=== PATIENT | male | born 1985 | race Caucasian/White ===

== ENCOUNTER 2016-12-11 19:00 | Emergency (ER) | payer OTHER ==
[2016-12-11 20:41] LABS: Basophils % (Auto) 0.8 % (0.0-1.8); Hematocrit 48.6 % (35.5-45.6); Hemoglobin 16.2 gm/dl (11.8-15.2); Mean Corpuscular HGB Conc 33 % (32-34); Mean Corpuscular Hemoglobin 30 pg (28-32); Mean Corpuscular Volume 89 fl (84-94); Platelet Count 234 K/mm3 (140-440); Red Blood Count 5.44 M/mm3 (3.65-5.03); Red Cell Distribution Width 13.7 % (13.2-15.2); White Blood Count 6.9 K/mm3 (4.5-11.0)
[2016-12-11 20:56] LABS: Urine Drugs of Abuse Note Disclamer
[2016-12-11 21:00] LABS: Anion Gap 16 mmol/L; Blood Urea Nitrogen 11 mg/dL (9-20); Calcium 9.8 mg/dL (8.4-10.2); Carbon Dioxide 27 mmol/L (22-30); Chloride 101.6 mmol/L (98-107); Glucose 114 mg/dL (75-100); Sodium 140 mmol/L (137-145)
[2016-12-11 21:34] LABS: Bilirubin,Urine NEG (Negative); Blood,Urine NEG (Negative); Ketones,Urine TR mg/dL (Negative); Leukocyte Esterase,Urine TR (Negative); Mucus,Urine 1+ /HPF; Nitrite,Urine NEG (Negative); Protein,Urine <15 mg/dL mg/dL (Negative); WBC,Urine < 1.0 /HPF (0.0-6.0)
--- NOTE | 2016-12-11 21:35 | Emergency Department Report ---
HPI - General Chief Complaint: Psych Time Seen by Provider: 12/11/16 21:08 - HPI HPI: This is a 31-year-old male who presents to the emergency department from home with the complaints of self-mutilation and suicidal thoughts while detoxing from heroin and meth. The patient has a history of going back between these drugs and sometimes using them concurrently and apparently has some severe reactions to both the drops themselves and the withdrawal/detox. In the past, the patient has cut himself, jumped off a bridge, and allegedly the use of heroin has caused the patient have a heart attack in the past. His girlfriend is bedside and says that he last used yesterday and has started talking about the suicidal thoughts now. He presents with cuts to both arms. He is up-to-date with tetanus vaccination. He has a past medical history of asthma, [place], HIV but is not on any medications. He does not have a primary care doctor or psychiatrist. He is a tobacco smoker. ED Past Medical Hx - Past Medical History Previous Medical History?: Yes Hx Hypertension: Yes Hx CVA: No Hx Heart Attack/AMI: Yes Hx Congestive Heart Failure: No Hx Diabetes: No Hx Deep Vein Thrombosis: No Hx Pulmonary Embolism: No Hx GERD: No Hx Liver Disease: No Hx Renal Disease: No Hx of Cancer: No Hx Sickle Cell Disease: No Hx Arthritis: No Hx Headaches / Migraines: No Hx Seizures: No Hx Kidney Stones: No Hx Psychiatric Treatment: Yes Hx Asthma: Yes Hx COPD: No Hx Tuberculosis: No Hx Dementia: No Hx HIV: Yes - Surgical History Past Surgical History?: No Hx Coronary Stent: No Hx Open Heart Surgery: No Hx Pacemaker: No Hx Internal Defibrillator: No Hx Cholecystectomy: No Hx Appendectomy: No Hx Breast Surgery: No - Social History Smoking Status: Current Every Day Smoker Substance Use Type: Heroin, Methamphetamines ED Review of Systems ROS: Stated complaint: MH EVAL Other details as noted in HPI Comment: All other systems reviewed and negative Constitutional: denies: chills, fever Eyes: denies: eye pain, eye discharge, vision change ENT: denies: ear pain, throat pain Respiratory: denies: cough, shortness of breath, wheezing Cardiovascular: denies: chest pain, palpitations Gastrointestinal: denies: abdominal pain, nausea, diarrhea Genitourinary: denies: urgency, dysuria Musculoskeletal: denies: back pain, joint swelling, arthralgia Skin: other (self inflicted abrasions). denies: rash, lesions Neurological: denies: headache, weakness, paresthesias Psychiatric: depression, suicidal thoughts. denies: homicidal thoughts Physical Exam - Physical Exam Vital Signs: Vital Signs 12/11/16 20:00 Temperature 98.6 F Pulse Rate 86 Respiratory 18 Rate Blood Pressure 141/94 Blood Pressure 141/94 [Right] O2 Sat by Pulse 95 Oximetry Physical Exam: GENERAL: The patient is well-developed well-nourished. HEENT: Normocephalic. Atraumatic. Extraocular motions are intact. Patient has moist mucous membranes. NECK: Supple. Trachea is midline. CHEST/LUNGS: Clear to auscultation. There is no respiratory distress noted. HEART/CARDIOVASCULAR: Regular. There is no tachycardia. There is no gallop rub or murmur. ABDOMEN: Abdomen is soft, nontender. Patient has normal bowel sounds. There is no abdominal distention. SKIN: Patient has multiple transverse noninfected nonbleeding abrasions to the dorsal forearms bilaterally. NEURO: The patient is awake, alert, and oriented. The patient is cooperative. The patient has no focal neurologic deficits. The patient has normal speech. MUSCULOSKELETAL: There is no tenderness or deformity. There is no limitation range of motion. There is no evidence of acute injury. PSYCH: Patient has a flat affect. ED Course Vital Signs 12/11/16 20:00 Temperature 98.6 F Pulse Rate 86 Respiratory 18 Rate Blood Pressure 141/94 Blood Pressure 141/94 [Right] O2 Sat by Pulse 95 Oximetry ED Medical Decision Making - Lab Data Result diagrams: 12/11/16 20:21 12/11/16 20:21 - Medical Decision Making 31-year-old male presents with detox from meth and heroin. This causes him to have depression and suicidal ideations. He already has self-inflicted abrasions and mutilation. In the past he has taken it even further and attempt to end his life and admits to more recent suicidal ideations. He denies any visual hallucinations or homicidal ideations. He denies any current auditory hallucinations but says that he had them earlier today. His vital signs of in stable throughout his ED course. None of the abrasions appear infected or requiring any suturing. The rest of his labs are unremarkable. The patient appears medically cleared for psychiatric placement. He has been made a 1013 secondary to the suicidal ideations. - Differential Diagnosis substance abuse, depression, bipolar disorder, schizophrenia Critical Care Time: No Critical care attestation.: If time is entered above; I have spent that time in minutes in the direct care of this critically ill patient, excluding procedure time. ED Disposition Clinical Impression: Suicidal ideations, Heroin withdrawal Depression Qualifiers: Depression Type: unspecified Qualified Code(s): F32.9 - Major depressive disorder, single episode, unspecified Disposition: DC/TX PSY HOSP/PSY UNIT Is pt being admited?: No Condition: Stable Referrals: PRIMARY CARE [Primary Care Provider] - 3-5 Days Time of Disposition: 21:41
--- NOTE | 2016-12-12 16:33 | Consultation ---
History of Present Illness - Reason for Consult Consult date: 12/12/16 Reason for consult: Mental Health Evaluation Requesting physician: YAMILETH ROSARIO - Chief Complaint Chief complaint: "I have no clue" - History of Present Psychiatric Illness This is a 31-year-old male who presents to the emergency department from home with the complaints of self-mutilation and suicidal thoughts while detoxing from heroin and meth. Today patient is calm and cooperative during assessment. He admits to being on a heroin binge the last couple days. He stated that he been depressed for a "while" and most recently jumped off a bridge June 2016 wanting to kill himself. Currently, patient stated, "I am suicidal now, but I don't know why. He denies having a plan at this time. He stated that he use recreational drugs often. He stated his last use of heroin was yesterday and its been a couple days since he used meth. He stated that his sister found him at a hotel and brought him to [facility]. Also, patient has superficial lacerations on both his upper extremities. He stated, "I just started cutting on myself." He stated that he cut on himself because he be depressed. He denies HI's, AVH's, poor appetite, sleep disturbance. He rate his depression a 8/10, with 10 being the worse. He denies alcohol consumption. He is positive for amphetamines and barbiturates. He is negative for opiates. Medications and Allergies Allergies Allergy/AdvReac Type Severity Reaction Status Date / Time No Known Allergies Allergy Unverified 12/11/16 20:14 Past psychiatric history - Past Medical History Past Medical History: acute CT (July 2016), HIV/AIDS, hypertension Past Surgical History: No surgical history - past Psychiatric treatment and history Psych: Depression - Social History Social history: lives with family (High school graduate) Mental Status Exam - Vital signs Last Vital Signs Temp 98.4 F 12/12/16 10:00 Pulse 84 12/12/16 10:00 Resp 18 12/12/16 10:00 BP 123/82 12/12/16 10:00 Pulse Ox 100 12/12/16 10:00 - Exam Narrative exam: ROS (+) depression Appearance: calm, cooperative Behavior: poor eye contact Speech: low rate and tone Mood: "I don't know how I feel" Affect: mood congruent Thought Process: circumstantial Thought Content: denies HI's and AVH's Cognition: a/o x3 Motor Activity: sitting up in bed Insight: poor Judgment: poor Results Result Diagrams: 12/11/16 20:21 12/11/16 20:21 Abnormal lab results 12/11/16 12/11/16 Range/Units 20:21 20:21 RBC 5.44 H (3.65-5.03) M/mm3 Hgb 16.2 H (11.8-15.2) gm/dl Hct 48.6 H (35.5-45.6) % Gage % (Auto) 8.6 H (0.0-7.3) % Glucose 114 H (75-100) mg/dL All other labs normal. Assessment and Plan Assessment and plan: Impression: MDD Severe Type/Substance Use DO. This is a 31-year-old male who presents to the emergency department from home with the complaints of self-mutilation and suicidal thoughts while detoxing from heroin and meth. Today patient is calm and cooperative during assessment. He admits to being on a heroin binge the last couple days. He stated that he been depressed for a "while" and most recently jumped off a bridge June 2016 wanting to kill himself. Currently, patient stated, "I am suicidal now, but I don't know why. He denies having a plan at this time. He denies HI's and AVH's. Positive for amphetamines and barbiturates. Negative for opiates. No withdrawals symptoms noted. Patient HIV positive and haven't taken medication in a year. DD: R/O Bipolar Recommendation/Plan: Continue 1013 with possible placement to inpatient psy services. Start Zyprexa 5 mg PO HS for mood, Zoloft 50 mg PO daily for depression, and Cogentin 0.5 mg PO HS for EPS prevention.
[2016-12-12] MEDS: ZOLOFT PO SCH (17:59)
[2016-12-12] MEDS ORDERED: COGENTIN PO SCH (22:00)
[2016-12-13 08:19] VITALS: BP 123/74
[2016-12-13] MEDS: ZOLOFT PO SCH (10:50)
--- NOTE | 2016-12-13 11:29 | Progress Note ---
Subjective - Reason for Consult Consult date: 12/13/16 Reason for consult: psychiatric follow up - Chief Complaint Chief complaint: "Withdrawal" 31 year old male seen for psychiatric follow up. Primary complaints are needing detox from heroin and suicidal ideation. He complains of n/v and myalgias. He reports loss of appetite and poor sleep. Last SI was yesterday. Mental Status Exam - Vital signs Last Vital Signs Temp 97.6 F 12/13/16 08:00 Pulse 65 12/13/16 08:00 Resp 18 12/13/16 08:21 BP 123/74 12/13/16 08:00 Pulse Ox 97 12/13/16 08:21 - Exam Orientation: time, place, person Affect: depressed Mood: congruent with affect Thought content: other (SI, no HI) Thought Process: Intact Perceptions: none Speech: normal rate and pattern Concentration: focused Motor activity: restless Level of consciousness: alert Memory: Intact Sleep Symptoms: Restless Appetite: decreased Interaction: cooperative Assessment and Plan Impression: MDD Severe Type/Substance Use DO. This is a 31-year-old male who presents to the emergency department from home with the complaints of self-mutilation and suicidal thoughts while detoxing from heroin and meth. Today patient is calm and cooperative during assessment. He admits to being on a heroin binge the last couple days. He stated that he been depressed for a "while" and most recently jumped off a bridge June 2016 wanting to kill himself. Last SI was yesterday. UDS on admission was Positive for amphetamines and barbiturates. Negative for opiates. c/o n/v and myalgias. Report of heroin use is not consistent with UDS. Patient HIV positive and haven't taken medication in a year. DD: R/O Bipolar Recommendation/Plan: Continue 1013 with placement to inpatient psy services. Continue Zyprexa 5 mg PO HS for mood, Zoloft 50 mg PO daily for depression, and Cogentin 0.5 mg PO HS for EPS prevention. Zofran 4mg odt added q8 hours prn for n/v
[2016-12-13] MEDS ORDERED: ZOFRAN ODT PO PRN (12:00)
== END 2016-12-13 16:07 ==
LOC: EEVIPCON 19:00 → ED 19:00
DX: R45.851 Suicidal ideations (principal); F11.23 Opioid dependence with withdrawal; F32.9 Major depressive disorder, single episode, unspecified; I10 Essential (primary) hypertension; I25.2 Old myocardial infarction; J45.909 Unspecified asthma, uncomplicated; F17.200 Nicotine dependence, unspecified, uncomplicated; F15.10 Other stimulant abuse, uncomplicated
CPT/HCPCS: 36415; 80048; 80307; 81001; 85025; 99285; G0480; 80320